=== PATIENT | male | born 1965 | race Caucasian/White ===

== ENCOUNTER 2019-04-05 08:37 | Outpatient (CLI) | payer BC, SELFPAY ==
[2019-04-05 08:50] LABS: Basophils Absolute Auto 0.07 K/mm3 (0.00-0.10); Basophils Percent Auto 1.3 % (0.0-1.0); Eosinophils Absolute Auto 0.13 K/mm3 (0.02-0.50); Eosinophils Percent Auto 2.4 % (1.0-6.0); Hematocrit 46.8 % (40.0-54.0); Hemoglobin 15.8 g/dL (14.0-18.0); Immature Granulocyte Absolute 0.02 K/mm3 (0.00-0.00); Immature Granulocyte Percent A 0.4 % (0.0-0.0); Lymphocytes Absolute Auto 1.06 K/mm3 (1.10-4.50); Lymphocytes Percent Auto 19.4 % (18.0-42.0); Mean Corpuscular HGB Conc 33.8 g/dL (32.0-36.0); Mean Corpuscular Hemoglobin 32.4 pg (27.0-31.0); Mean Corpuscular Volume 96.1 fL (78.0-102.0); Mean Platelet Volume 9.2 fl (8.7-11.0); Monocytes Absolute Auto 0.65 K/mm3 (0.10-0.90); Monocytes Percent Auto 11.9 % (2.0-11.0); Neutrophils Absolute Auto 3.5 K/mm3 (1.7-7.2); Neutrophils Percent Auto 64.6 % (50.0-70.0); Platelet Count Result 253 K/mm3 (150-420); Red Blood Count 4.87 M/mm3 (4.70-6.10); Red Cell Distribution Width 13.9 % (11.6-14.4); White Blood Count 5.5 K/mm3 (4.8-10.8)
[2019-04-05 09:40] LABS: Alanine Aminotransferase 32 U/L (16-63); Albumin Level 3.9 g/dL (3.4-5.0); Alkaline Phosphatase 66 U/L (46-116); Anion Gap 14.1 mmol/L (7-16); Aspartate Amino Transferase 24 U/L (15-37); Bilirubin,Total 0.4 mg/dL (0.00-1.00); Blood Urea Nitrogen 18 mg/dL (7-18); Calcium 8.8 mg/dL (8.5-10.1); Carbon Dioxide 27 mmol/L (21-32); Chloride 108 mmol/L (98-108); Cholesterol 195 mg/dL (0-200); Estimated Glomerular Filt Rate > 60; Glucose 95 mg/dL (70-99); HDL Direct 69 mg/dL (40-60); LDL Cholesterol Calculated 118 mg/dL (<130); Osmolality Calculated 301 mOsm/kg (285-295); Potassium 4.1 mmol/L (3.5-5.1); Sodium 145 mmol/L (136-145); Total Protein 7.1 g/dL (6.4-8.2); Triglycerides 42 mg/dL (0-150)
[2019-04-05 09:42] LABS: Thyroid Stimulating Hormone Reflex 2.82 u/IU/mL (0.36-3.74)
== END 2019-04-05 08:38 | disposition home or self-care (01) ==
PROVIDERS: PCP Family Medicine; Visit Provider Family Medicine
DX: Z00.00 Encounter for general adult medical examination without abnormal findings (principal)
CPT/HCPCS: 36415; 80053; 80061; 84443; 85025

== ENCOUNTER 2019-08-01 08:06 | Outpatient (CLI) | payer BC, SELFPAY ==
--- NOTE | ~2019-08-01 | CT_ITS ---
EXAMINATION: CT abdomen pelvis w con DATE: 08/01/2019 08:47 INDICATION: Unspecified abdominal pain TECHNIQUE: Computed tomography (CT) of the abdomen and pelvis was performed . with 100 mL Omnipaque-3 50 intravenous contrast. Automated exposure control and iterative reconstruction technique were emplo yed. The dose-length product was 473.27 mGy-cm. COMPARISON: None FINDINGS: Minimal atelectasis in the dependent right lower lobe. Heart size is normal. No pericardial or pleura l effusion. A few scattered small low-attenuation hepatic lesions the largest measuring 8 mm the dome most likely hepatic cysts or hemangiomas. Gallbladder, spleen, pancreas, bilateral adrenal glands ar e normal. There are few small bilateral renal cysts the largest measuring 6 mm in the left kidney. Th ere is mild colonic diverticulosis with a sigmoid predominance. There is no adjacent inflammatory ch yahir to suggest diverticulitis. Small bowel and appendix are normal. Bladder is normal. Small bilater al fat-containing inguinal hernias. No free intraperitoneal gas or fluid. No pathologically enlarged abdominal or pelvic lymphadenopathy. Minimal scattered degenerative skeletal changes. IMPRESSION: 1. No acute intra-abdominal/pelvic process. 2. Mild diverticulosis. Reviewed, dictated and finalized at location A.
== END 2019-08-01 08:07 | disposition home or self-care (01) ==
PROVIDERS: PCP Family Medicine; Visit Provider Family Medicine
DX: R10.9 Unspecified abdominal pain (principal)
CPT/HCPCS: 74177; Q9965

== ENCOUNTER 2020-09-16 09:52 | Outpatient (CLI) | payer OTHER, SELFPAY ==
[2020-09-16 10:23] LABS: Basophils Absolute Auto 0.05 K/mm3 (0.00-0.10); Basophils Percent Auto 0.9 % (0.0-1.0); Eosinophils Percent Auto 1.8 % (1.0-6.0); Hemoglobin 16.4 g/dL (14.0-18.0); Immature Granulocyte Absolute 0.01 K/mm3 (0.00-0.00); Immature Granulocyte Percent A 0.2 % (0.0-0.0); Lymphocytes Absolute Auto 0.85 K/mm3 (1.10-4.50); Lymphocytes Percent Auto 15.2 % (18.0-42.0); Mean Corpuscular HGB Conc 34.2 g/dL (32.0-36.0); Mean Corpuscular Hemoglobin 32.3 pg (27.0-31.0); Mean Corpuscular Volume 94.7 fL (78.0-102.0); Mean Platelet Volume 9.8 fl (8.7-11.0); Monocytes Absolute Auto 0.44 K/mm3 (0.10-0.90); Monocytes Percent Auto 7.9 % (2.0-11.0); Neutrophils Absolute Auto 4.1 K/mm3 (1.7-7.2); Platelet Count Result 281 K/mm3 (150-420); Red Blood Count 5.07 M/mm3 (4.70-6.10); White Blood Count 5.6 K/mm3 (4.8-10.8)
[2020-09-16 11:06] LABS: Alanine Aminotransferase 48 U/L (16-63); Alkaline Phosphatase 64 U/L (46-116); Anion Gap 12 mmol/L (8-16); Aspartate Amino Transferase 26 U/L (15-37); Bilirubin,Total 0.5 mg/dL (0.00-1.00); Blood Urea Nitrogen 14 mg/dL (7-18); Calcium 9.3 mg/dL (8.5-10.1); Carbon Dioxide 25 mmol/L (21-32); Chloride 106 mmol/L (98-108); Cholesterol 181 mg/dL (0-200); Estimated Glomerular Filt Rate > 60; Glucose 98 mg/dL (70-99); HDL Direct 83 mg/dL (40-60); LDL Cholesterol Calculated 91 mg/dL (<130); Osmolality Calculated 296 mOsm/kg (285-295); Potassium 4.5 mmol/L (3.5-5.1); Sodium 143 mmol/L (136-145); Triglycerides 35 mg/dL (0-150)
== END 2020-09-16 09:53 | disposition home or self-care (01) ==
PROVIDERS: PCP Family Medicine; Visit Provider Family Medicine
DX: Z00.00 Encounter for general adult medical examination without abnormal findings (principal); Z13.220 Encounter for screening for lipoid disorders; Z13.6 Encounter for screening for cardiovascular disorders
CPT/HCPCS: 36415; 80053; 80061; 85025

== ENCOUNTER 2021-01-13 06:29 | Emergency (ER) | payer OTHER, SELFPAY ==
--- NOTE | ~2021-01-13 | CT_ITS ---
EXAMINATION: CT lumbar spine wo con DATE: 01/13/2021 07:43 INDICATION: Sudden severe back pain. TECHNIQUE: Computed tomography (CT) of the lumbar spine was performed without intravenous contrast. A utomated exposure control and iterative reconstruction technique were employed. The dose-length produ ct was 455.94 mGy-cm. COMPARISON: CT abdomen and pelvis 08/01/2019 FINDINGS: Bone alignment is normal. Vertebral body heights are normal. There is mildly decreased disc height at L4-L5 and moderately decreased disc at L5-S1. The following disc levels are specifically d iscussed: L1-L2: The disc does not extend beyond the endplate margin. There is mild bilateral facet joint osteo arthritis. There is no neural foraminal stenosis. There is no central canal stenosis. L2-L3: The disc is bulging. There is mild bilateral facet joint osteoarthritis. There is mild bilater al neural foraminal stenosis. There is mild central canal stenosis. L3-L4: The disc is bulging. There is moderate right and mild left facet joint osteoarthritis. There i s mild bilateral neural foraminal stenosis. There is mild central canal stenosis. L4-L5: The disc is bulging. There is mild bilateral facet joint osteoarthritis. There is mild bilater al neural foraminal stenosis. There is mild central canal stenosis. L5-S1: The disc is bulging. There is moderate bilateral facet joint osteoarthritis. There is mild poornima ateral neural foraminal stenosis. There is mild central canal stenosis. IMPRESSION: 1. Moderate lower lumbar spondylosis. Reviewed, dictated and finalized at location B. 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
[2021-01-13 07:00] VITALS: BP 116/94; PULSE 94; RESP 20; TEMP 36.3; O2SAT 98
--- NOTE | 2021-01-13 07:18 | ED.BACK ---
HPI - Back Pain/Injury General Chief Complaint: Back Pain/Injury Stated Complaint: Back is out Time Seen by Provider: 01/13/21 07:17 Source: patient Mode of arrival: ambulatory Limitations: no limitations History of Present Illness HPI Narrative: 55-year-old man with a history of intermittent low back pain comes in today complaining of severe low back pain that started after he got out of a car. He states he felt a sudden shift in his back which cause pain to go down both legs posteriorly and up his back to his neck. He denies any falls, injuries, fever, chills, dysuria, hematuria, history of urolithiasis or back surgery. He denies weakness in his legs, incontinence and perineal numbness. He sees a chiropractor regularly for his back pain. MD elicited complaint: back pain Pertinent past history: prior back pain Onset (ago): day(s) (1) Timing: constant Severity: severe Similar Symptoms Previously: Yes (But not so severe) Location: lumbar spine and sacrum Radiation: buttocks, left upper leg and right upper leg Exacerbating factors: movement and other (Change in position) Relieving factors: other (Standing) Context: turning/twisting and bending Associated symptoms: denies other symptoms Treatments prior to arrival: NSAIDS and prescription analgesics Related Data Allergies Allergy/AdvReac Type Severity Reaction Status Date / Time No Known Allergies Allergy Verified 09/17/20 13:46 Review of Systems Review of Systems: All systems reviewed & are unremarkable except as noted in HPI and below Constitutional: Constitutional: Denies chills and Denies fever(s) Cardiovascular: Cardiovascular: Denies chest pain and Denies radiating jaw, neck or arm pain Respiratory: Respiratory: Denies cough and Denies dyspnea Gastrointestinal: Gastrointestinal: Denies abdominal pain, Denies nausea and Denies vomiting Genitourinary: Genitourinary: Denies hematuria, Denies dysuria, Denies urinary frequency and Denies urinary incontinence Musculoskeletal: Musculoskeletal: Reports as per HPI, Reports back pain and Denies joint swelling Integumentary/Breasts: Skin/Breast: Denies pruritus, Denies erythema and Denies rash Neurologic: Denies vertigo, Denies dizziness, Denies syncope, Denies focal weakness, Denies numbness and Denies weakness Hematologic/Lymphatic: Hematologic/Lymphatic: Denies easy bleeding and Denies easy bruising Allergic/Immunologic: Allergic/Immunologic: Denies lip swelling and Denies throat swelling [facility] Past Medical History Medical History Cigarette nicotine dependence Encounter for lipid screening for cardiovascular disease Erectile disorder, generalized, mild Family History Family History (System 09/17/20 @ 13:46 by Sindi Dobson) Father Cerebral aneurysm Malignant neoplasm of prostate Social History Social History Smoking status: Current every day smoker Alcohol intake: current Alcohol use details: 3-5 vodka and wine drinks per day Substance use: never Substance use type: does not use Exam Const: General: healthy appearing and alert Orientation/consciousness: patient oriented x3 Limitations: no limitations Other: Moderate to severe acute distress. Eyes: Conjunctivae: conjunctivae normal Pupils: Equal, round and reactive pupils present EOM: EOMs intact bilaterally Resp: Effort & Inspection: normal respiratory effort and not labored Auscultation: clear to auscultation bilaterally, no rales, no rhonchi and no wheezes Cardio: Rate: regular rate Rhythm: regular rhythm Skin: General skin exam: normal color, no jaundice and no pallor Rashes: no rashes Neuro: General: patient oriented x3, moves all extremities, no focal motor deficits and CN's II-XI intact bilaterally Speech: normal speech Gait exam (Neuro): Normal gait present Other: DTRs 2+ and symmetric at the pat
[2021-01-13] MEDS: KETOROLAC (*BKC) 60 MG/2 ML VIAL IM (07:55)
[2021-01-13] MEDS: HYDROcodone/acetaminophen (*CRX) 5-325 MG TABLET 1 TAB PO (08:04)
[2021-01-13 08:09] VITALS: BP 129/89; PULSE 94; RESP 20; TEMP 36.4; O2SAT 97
== END 2021-01-13 08:30 | disposition home or self-care (01) ==
PROVIDERS: Emergency Provider Emergency Medicine; PCP Family Medicine
DX: M54.42 Lumbago with sciatica, left side (principal); M54.41 Lumbago with sciatica, right side
CPT/HCPCS: 72131; 96372; 99283; 99284; A9270; J1885

== ENCOUNTER 2021-03-11 07:14 | Emergency (ER) | payer OTHER, SELFPAY ==
[2021-03-11 07:15] VITALS: BP 148/105; PULSE 114; RESP 20; TEMP 36.1; O2SAT 98
--- NOTE | 2021-03-11 07:37 | ED.BACK ---
HPI - Back Pain/Injury General Chief Complaint: Back Pain/Injury Stated Complaint: Back pain Time Seen by Provider: 03/11/21 07:18 Source: patient and family History of Present Illness HPI Narrative: this is a 55-year-old gentleman presents with a chronic back pain was seen in the emergency department had a CT scan of his lower back which shoulder bulging disc and has appointment with his primary care physician for an MRI of his lower back, the patient woke up this morning having increased lower back pain with numbness and tingling radiating down his left lower leg with no saddle paresthesias has pain medication that he took at home patient states that his pain has improved slightly since he has been here. There was no bowel dysfunction no dysuria no fever chills. MD elicited complaint: back pain Pertinent past history: prior back pain Onset (ago): hour(s) Timing: improved Severity: moderate Pain scale (0-10): 6 Quality: sharp and spasming Location: lumbar spine Radiation: left upper leg Exacerbating factors: movement Relieving factors: immobilization Related Data Allergies Allergy/AdvReac Type Severity Reaction Status Date / Time No Known Allergies Allergy Verified 03/11/21 07:42 Review of Systems Review of Systems: All systems reviewed & are unremarkable except as noted in HPI and below PMFSH Past Medical History Medical History Acute midline low back pain with bilateral sciatica Cigarette nicotine dependence Encounter for lipid screening for cardiovascular disease Erectile disorder, generalized, mild Lumbago with sciatica, right side Family History Family History Father Cerebral aneurysm Malignant neoplasm of prostate Social History Social History Smoking status: Current every day smoker Alcohol intake: current Alcohol use details: 3-5 vodka and wine drinks per day Substance use: never Substance use type: does not use Exam Const: General: no acute distress Orientation/consciousness: patient oriented x3 HENMT: Head: normal to inspection Eyes: Conjunctivae: conjunctivae normal Pupils: Equal, round and reactive pupils present Neck: Neck: normal visual inspection, no lymphadenopathy and no meningeal signs Chest: Chest palpation & inspection: normal inspection of the chest Resp: Effort & Inspection: normal respiratory effort Cardio: Rate: regular rate Rhythm: regular rhythm GI: GI Palp: Yes Soft to palpation Percussion: Yes normal to percussion : Testes: Testes normal Urinary Catheter: Urinary Catheter: patent and draining Back/Spine/Pelvis: Back: no CVA tenderness Other: L4 and 5 left paravertebral tenderness with palpation with numbness radiating down his left leg Skin: General skin exam: normal color Rashes: no rashes Neuro: General: patient oriented x3, moves all extremities, no meningeal signs and no focal motor deficits Extrem: General: normal to inspection and no pedal edema Psych: Mental Status: mental status grossly normal Course Course Emergency Course: patient states that his pain has already improved slightly, will give the patient a Depo-Medrol 80mg IM along with IM muscle relaxer and advised patient to keep his follow-up appointment that has scheduled at 1:00 a.m. his primary care physician for an MRI. Discharge Plan Discharge Clinical Impression: Lumbar radiculopathy Sciatica Qualifiers: Laterality: left Qualified Code(s): M54.32 - Sciatica, left side Patient Disposition: Home, Self-Care Condition: Stable Instructions: Antibiotic Form, Sciatica (ED), Acute Low Back Pain (ED) Additional Instructions: Take medicine as prescribed and keep follow-up appointment with primary care physician. Prescriptions: No Action hydrocodone-acetaminophen 5-325 mg tablet
[2021-03-11] MEDS: methylPREDNISolone ACETATE 40 MG/ML VIAL 80 MG IM (07:48)
[2021-03-11] MEDS: ORPHENADRINE CITRATE 100 MG TABLET.ER PO (07:48)
[2021-03-11 07:57] VITALS: BP 135/101; PULSE 110; RESP 20; TEMP 36.1; O2SAT 98
== END 2021-03-11 08:03 | disposition home or self-care (01) ==
PROVIDERS: Emergency Provider Emergency Medicine; PCP Family Medicine
DX: M54.32 Sciatica, left side (principal)
CPT/HCPCS: 96372; 99283; A9270; J1030

== ENCOUNTER 2021-03-11 09:14 | Outpatient (CLI) | payer OTHER, SELFPAY ==
--- NOTE | ~2021-03-11 | XR_ITS ---
XR lumbar spine 2-3V DATE: 03/11/2021 09:46 INDICATION: Back pain, right sciatica for 2 months TECHNIQUE: AP, lateral, coned lateral lumbosacral views COMPARISON: 01/09/2021 CT lumbar spine FINDINGS: Normal alignment of the lumbar spine. No fracture or bone destruction. The lumbar pedicles are intact. There is moderately severe loss of interspace height at L5-S1 and mild spurring. Otherwise there is m inimal spurring but lumbar interspaces are relatively preserved. The sacroiliac joints are intact. IMPRESSION: Moderately prominent degenerative disc disease at L5-S1 and minimal degenerative disc dis ease at the remainder of the lumbar spine Reviewed, dictated and finalized at location A. CTOR OF DEVELOPMENT IMPRESSION: Moderately prominent degenerative disc disease at L5-S1 and minimal degenerative disc disease at the remainder of the lumbar spine
--- NOTE | ~2021-03-11 | XR_ITS ---
XR sacroiliac joints min 3V DATE: 03/11/2021 09:46 INDICATION: Lumbago, right sciatica TECHNIQUE: AP and bilateral oblique views COMPARISON: None FINDINGS: No fracture or dislocation, erosion, ankylosis or other significant abnormality at the sacr oiliac joints. IMPRESSION: Negative sacroiliac joints Reviewed, dictated and finalized at Location A. Reviewed, dictated and finalized at location A. 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
[2021-03-11 10:07] LABS: CRP < 0.5 mg/dL (0.0-0.9)
[2021-03-11 10:34] LABS: Erythrocyte Sedimentation Rate 5 mm/hr (0-20)
[2021-03-11 10:51] LABS: Rheumatoid Factor Screen Negative (Negative)
[2021-03-13 22:01] LABS: ANA Cascade Screen Negative (Negative)
== END 2021-03-11 09:15 | disposition home or self-care (01) ==
LOC: CHSLAB 09:16
PROVIDERS: PCP Family Medicine; Visit Provider Family Medicine
DX: M54.41 Lumbago with sciatica, right side (principal); M54.16 Radiculopathy, lumbar region
CPT/HCPCS: 36415; 72100; 72202; 85652; 86038; 86140; 86430

== ENCOUNTER 2021-03-16 11:59 | Outpatient (CLI) | payer OTHER, SELFPAY ==
--- NOTE | ~2021-03-16 | US_ITS ---
US scrotum doppler INDICATION: Spermatocele. TECHNIQUE: Testicular sonogram utilizing grayscale and color Doppler FINDINGS: The testes are normal in size and appearance. No focal lesions are seen. The right testes measures 4.7 x 2.9 x 3.7 cm centimeters, and the left testis measures 4.8 x 2.2 x 3.1 cm. There is no rmal vascular flow to both testes. There are right epididymal cysts, largest being septated measuring 3.6 x 3.2 x 1.2 cm There is no varicocele or hydrocele. IMPRESSION: 1. Right epididymal cysts. Reviewed, dictated and finalized at location B. STAMPER IMPRESSION: 1. Right epididymal cysts.
== END 2021-03-16 12:00 | disposition home or self-care (01) ==
LOC: CHSIMG 12:00
PROVIDERS: PCP Family Medicine; Visit Provider Family Medicine
DX: N43.40 Spermatocele of epididymis, unspecified (principal)
CPT/HCPCS: 76870; 93976

== ENCOUNTER 2021-03-18 11:01 | Outpatient (RCR) | payer OTHER, SELFPAY ==
--- NOTE | 2021-03-18 12:01 | PTOPEVAL ---
Thank you for referring Luis Carlos to [facility].? The patient is scheduled to be seen for therapy? ____x/week for ___ weeks. Please review, sign, date and return this plan of care TOÑO. I agree with and certify that the following plan of care is medically necessary. Referring Physician Date Admitting Provider: Attending Provider: Andres Sandoval, Referring Provider: *DORIS Outpatient Evaluation Start: 03/18/21 11:04 Freq: Status: Active Protocol: Document 03/18/21 11:[address] [facility] (Rec: 03/18/21 11:[address] [facility] [id number]) Therapy Assessment Status Assessment Status Assessment Status Evaluation Outpatient Past Medical History Musculoskeletal History Hx Back Pain Yes Reproductive History Hx Other Reproductive Disorders Yes: erectile disfunction Evaluation Information Problem Diagnosis lumbar radiculopathy Onset 03/11/21 Additional Evaluation Detail oswestry = 32% functionally declined Subjective Information patient reports he injured his Query Text:As Reported By Patient/ back about 2 months ago. he Family reports he was given meds to help with the pain initially. he reports he felt he was getting a bit better, but never pain free. however, he then had a relapse of pain that landed him in the ER. he reports he has had a CT scan, but no MRI. he reports he has a herniated and several bulging discs. he reports he was having shooting pain into the legs and testicles. he reports he has not had these intense shooting pains for over a week. he reports he feels he is starting to get a bit better. he reports no issues with urination or incontinence. he reports he has increased pain with sitting for too long, and initially with getting up in the mornings. he reports he feels improved when up and walking around. 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 Prior Level of Function Comments Additional Prior Lev
--- NOTE | 2021-04-07 10:09 | PTOPEVAL ---
Thank you for referring Luis Carlos to [facility].? The patient is scheduled to be seen for therapy? ____x/week for ___ weeks. Please review, sign, date and return this plan of care TOÑO. I agree with and certify that the following plan of care is medically necessary. Referring Physician Date Admitting Provider: Attending Provider: Andres Sandoval, Referring Provider: *PT Outpatient Evaluation Start: 03/18/21 11:04 Freq: Status: Active Protocol: Document 04/07/21 09:25 [facility] (Rec: 04/07/21 10:02 [facility] [id number]) Therapy Assessment Status Assessment Status Assessment Status Re-evaluation Outpatient Past Medical History Musculoskeletal History Hx Back Pain Yes Reproductive History Hx Other Reproductive Disorders Yes: erectile disfunction Evaluation Information Problem Diagnosis lumbar radiculopathy Onset 03/11/21 Additional Evaluation Detail oswestry = 4% functionally declined Subjective Information patient reports he feels Query Text:As Reported By Patient/ Great this date. he reports Family continued pain free activities . he reports he would like to make today his last therapy session. Pain Assessment Timing of Pain Assessment Timing of Pain Assessment Assessment Self Report Self Report Pain Level 0 Pain Score Pain Score 0: Self Report Cervical and Lumbar ROM Lumbar ROM Lumbar Flexion Active Ankle Query Text:Hands to: Lumbar Extension (0-40) 40 Query Text:Active in Degrees Lumbar Lateral Flexion Right (0-40) 40 Query Text:Active in Degrees Lumbar Lateral Flexion Left (0-40) 40 Query Text:Active in Degrees Cervical and Lumbar Muscle Testing Lumbar Strength Upper Abdominal Strength 4 Good Lower Abdominal Strength 4-Good- Lower Extremity Muscle Strength Testing General Lower Extremity Strength Gross Lower Extremity Strength 4+/5 R hip flex and abd 4+/5 L hip flex and abd 5/5 L knee flex and ext 5/5 R knee ext and ext 5/5 bilateral ankle DF Gait Assessment Gait Pattern Assessment Gait Pattern No Deviations/Normal Other Gait Observations patient ambulates 12 mintues with upright posture, no pain, and normal gait mechanics General Exercise General Exercises Exercise Description -ambulation 12 minutes Query Text:Record Sets, Reps, focusing on upright posture Resistance, and Position and endurance -cadence 5
== END 2021-04-07 23:59 | disposition home or self-care (01) ==
LOC: CHSPT 11:01
PROVIDERS: PCP Family Medicine; Visit Provider Family Medicine
DX: M54.16 Radiculopathy, lumbar region (principal)
CPT/HCPCS: 97012; 97014; 97110; 97161; 97530; G0283

== ENCOUNTER 2022-10-04 09:54 | Outpatient (CLI) | payer OTHER, SELFPAY ==
[2022-10-04 10:05] LABS: Basophils Absolute Auto 0.06 K/mm3 (0.00-0.10); Basophils Percent Auto 1.1 % (0.0-1.0); Eosinophils Absolute Auto 0.09 K/mm3 (0.02-0.50); Eosinophils Percent Auto 1.6 % (1.0-6.0); Hematocrit 47.5 % (40.0-54.0); Hemoglobin 16.1 g/dL (14.0-18.0); Immature Granulocyte Absolute 0.01 K/mm3 (0.00-0.00); Immature Granulocyte Percent A 0.2 % (0.0-0.0); Lymphocytes Absolute Auto 0.95 K/mm3 (1.10-4.50); Lymphocytes Percent Auto 17.2 % (18.0-42.0); Mean Corpuscular HGB Conc 33.9 g/dL (32.0-36.0); Mean Corpuscular Hemoglobin 32.7 pg (27.0-31.0); Mean Corpuscular Volume 96.3 fL (78.0-102.0); Mean Platelet Volume 9.6 fl (8.7-11.0); Monocytes Percent Auto 7.2 % (2.0-11.0); Neutrophils Percent Auto 72.7 % (50.0-70.0); Platelet Count Result 274 K/mm3 (150-420); Red Blood Count 4.93 M/mm3 (4.70-6.10); Red Cell Distribution Width 12.8 % (11.6-14.4); White Blood Count 5.5 K/mm3 (4.8-10.8)
[2022-10-04 10:50] LABS: Alanine Aminotransferase 25 U/L (16-63); Albumin Level 4.2 g/dL (3.4-5.0); Alkaline Phosphatase 71 U/L (46-116); Anion Gap 9 mmol/L (8-16); Aspartate Amino Transferase 24 U/L (15-37); Bilirubin,Total 0.6 mg/dL (0.00-1.00); Blood Urea Nitrogen 18 mg/dL (7-18); Calcium 9.2 mg/dL (8.5-10.1); Carbon Dioxide 28 mmol/L (21-32); Chloride 104 mmol/L (98-108); Cholesterol 191 mg/dL (0-200); Estimated Glomerular Filt Rate > 60; Glucose 97 mg/dL (70-99); HDL Direct 83 mg/dL (40-60); LDL Cholesterol Calculated 102 mg/dL (<130); Osmolality Calculated 293 mOsm/kg (285-295); Potassium 4.5 mmol/L (3.5-5.1); Sodium 141 mmol/L (136-145); Thyroid Stimulating Hormone 1.93 uIU/mL (0.36-3.74); Total Protein 7.2 g/dL (6.4-8.2); Triglycerides 28 mg/dL (0-150)
== END 2022-10-04 09:55 | disposition home or self-care (01) ==
LOC: CHSLAB 09:56
PROVIDERS: PCP Family Medicine; Visit Provider Nurse Practitioner Family
DX: I10 Essential (primary) hypertension (principal); F17.210 Nicotine dependence, cigarettes, uncomplicated
CPT/HCPCS: 36415; 80053; 80061; 84443; 85025

== ENCOUNTER 2022-10-06 07:35 | Outpatient (CLI) | payer OTHER, SELFPAY ==
--- NOTE | ~2022-10-06 | CT_ITS ---
EXAMINATION: CT lung screening DATE: 10/06/2022 07:54 INDICATION: Personal history nicotine dependence, current smoker with 39 pack year history TECHNIQUE: Computed tomography (CT) of the chest was performed without intravenous contrast. The dose -length product (DLP) was 125.84 mGy-cm. Automated exposure control and iterative reconstruction tech [employer] were employed. COMPARISON: None FINDINGS: There is mild emphysema. There is a 5 mm lymph node of the major fissure on the left. There is a 3 mm lymph node of the minor fissure on the right. No pulmonary nodules are identified. The kacie gs are free of focal airspace opacities. No pleural effusion or pneumothorax. No pathologically enlar ged thoracic lymph nodes are identified. The heart size is normal. IMPRESSION: 1. Lung-RADS category 1: Negative. Continue annual screening with noncontrast low-dose chest CT in 12 months. Reviewed, dictated and finalized at location D. IMPRESSION: 1. Lung-RADS category 1: Negative. Continue annual screening with noncontrast l ow-dose chest CT in 12 months.
== END 2022-10-06 07:36 | disposition home or self-care (01) ==
LOC: CHSIMG 07:36
PROVIDERS: PCP Family Medicine; Visit Provider Nurse Practitioner Family
DX: Z12.2 Encounter for screening for malignant neoplasm of respiratory organs (principal); Z87.891 Personal history of nicotine dependence; R07.9 Chest pain, unspecified
CPT/HCPCS: 71271

== ENCOUNTER 2022-10-19 15:34 | Outpatient (CLI) | payer OTHER, SELFPAY ==
[2022-10-19 16:19] LABS: NT Pro B Type Natriuretic Pept 112 pg/mL (0-125); Troponin I 5.7 ng/L (0.00-60.4)
[2022-10-19 16:29] LABS: Partial Thromboplastin Time 25.1 SEC (23.90-30.70); Prothrombin Time 10.6 Seconds (9.50-12.10)
== END 2022-10-19 15:35 | disposition home or self-care (01) ==
LOC: CHSLAB 15:35
PROVIDERS: PCP Family Medicine; Visit Provider Nurse Practitioner Family
DX: I10 Essential (primary) hypertension (principal); R07.89 Other chest pain; I51.7 Cardiomegaly; F17.210 Nicotine dependence, cigarettes, uncomplicated
CPT/HCPCS: 36415; 83880; 84484; 85610; 85730

== ENCOUNTER 2022-10-21 15:29 | Outpatient (CLI) | payer OTHER, SELFPAY ==
--- NOTE | ~2022-10-21 | CT_ITS ---
EXAMINATION: CTA chest PE protocol DATE: 10/21/2022 16:05 INDICATION: Left chest pain. Shortness of breath. TECHNIQUE: Computed tomography angiography (CTA) of the chest was performed with 100 mL Omnipaque-350 intravenous contrast timed to evaluate the pulmonary arteries. Coronal maximum intensity projection 3D-reconstructions were created by the technologist. Automated exposure control and iterative reconst ruction technique were employed. The dose-length product was 503.81 mGy-cm. COMPARISON: Chest CT 10/06/2022 FINDINGS: There is mild emphysema. There is mild scarring at left lung apex. No pleural effusion. The heart size is normal. No pericardial effusion. There is no pulmonary embolus. There is mild cervical and thoracic spondylosis. IMPRESSION: 1. No pulmonary embolus. 2. Mild emphysema. Reviewed, dictated and finalized at location E.
== END 2022-10-21 15:30 | disposition home or self-care (01) ==
LOC: CHSIMG 15:30
PROVIDERS: PCP Family Medicine; Visit Provider Nurse Practitioner Family
DX: R07.89 Other chest pain (principal); I10 Essential (primary) hypertension; F17.210 Nicotine dependence, cigarettes, uncomplicated; I51.7 Cardiomegaly; J43.9 Emphysema, unspecified
CPT/HCPCS: 71275; Q9967